=== PATIENT | female | born 1965 | race Caucasian/White ===

== ENCOUNTER 2017-02-07 16:06 | Emergency (ER) | payer MEDICARE, MEDICAID | END 2017-02-07 17:55 | disposition home or self-care (01) | LOC: D.ER 16:06 | DX: S29.012A Strain of muscle and tendon of back wall of thorax, initial encounter (principal); W10.9XXA Fall (on) (from) unspecified stairs and steps, initial encounter; Y93.89 Activity, other specified; Y92.89 Other specified places as the place of occurrence of the external cause; M54.6 Pain in thoracic spine ==

== ENCOUNTER 2017-04-15 09:27 | Emergency (ER) | payer MEDICARE, MEDICAID | END 2017-04-15 11:30 | disposition home or self-care (01) | LOC: D.ER 09:27 | DX: S16.1XXA Strain of muscle, fascia and tendon at neck level, initial encounter (principal); W10.9XXA Fall (on) (from) unspecified stairs and steps, initial encounter; Y93.89 Activity, other specified; Y92.019 Unspecified place in single-family (private) house as the place of occurrence of the external cause ==